=== PATIENT | male | born 1960 | race Caucasian/White ===

== ENCOUNTER 2025-08-30 15:13 | Emergency (ER) | payer BC, SELFPAY ==
[2025-08-30 15:32] VITALS: BP 164/107
--- NOTE | 2025-08-30 15:47 | ED.GENMED ---
History of Present Illness
General
Chief Complaint: Crisis Evaluation
Source: patient and family (Siblings)
Exam Limitations: none
Time Seen by Provider: 08/30/25 15:37
History of Present Illness
History of Present Illness:
65-year-old male presents with depression and suicidal ideation. This is apparently been ongoing for months. Has come to ahead today. He apparently posted online about his thoughts and issues. Stepdaughter confronted him where he admitted to
being severely depressed with suicidal ideation. He lost his job. Has had multiple surgeries. Not sleeping. Very depressed. Has been seen by psychologist over the last month. Denies acute medical complaints but has ongoing neck pain and
headaches that have been a chronic issue.
Past History
Past History
ED Past Medical History: HTN and NIDDM
ED Past Surgical History: Cholecystectomy, Orthopedic and Other ([place] teeth)
Review of Systems
Review of Systems
All Other Systems: Not applicable
Constitutional: Denies fever or chills
Respiratory: Reports no symptoms
Cardiac: Reports no symptoms
Phy Exam
Physical Exam
Physical Exam:
GENERAL: Alert and oriented. Slightly tearful. Slightly poor eye contact
EYE: Orbits normal.
NECK: Supple
CARDIAC: Regular rate and rhythm without any obvious murmurs.
LUNGS: Clear breath sounds,normal
ABDOMEN: Soft, without focal tenderness or distention
NEUROLOGICAL: Alert and oriented , grossly non-focal
SKIN: Warm and dry
PSYCH: Normal and appropriate interaction.
Course
Orders/Labs/Results
Orders:
Orders
08/30/25 15:15
1:1 Observation - Suicide/ Violent Behavior As Directed
08/30/25 15:37
Crisis Consult Urgent
Reason for Consult: depression. suicidal ideation
08/30/25 17:22
Acetaminophen [Tylenol] 1,000 mg PO NOW STA
Ibuprofen [Motrin] 600 mg PO NOW STA
08/30/25 20:10
METFORMIN HCl [Glucophage] 500 mg .ROUTE .STK-MED ONE
METFORMIN HCl [Glucophage] 500 mg PO NOW STA
Vital Signs
Initial and Last Documented VS:
Initial Vital Signs
Temp Pulse Resp BP Pulse Ox
98.7 F 112 18 164/107 96
08/30/25 15:32 08/30/25 15:32 08/30/25 15:32 08/30/25 15:32 08/30/25 15:32
Last Documented Vital Signs
Temp Pulse Resp BP Pulse Ox
98.7 F 93 16 122/85 96
08/30/25 15:32 08/30/25 17:42 08/30/25 17:42 08/30/25 17:42 08/30/25 15:50
MDM/Problems Addressed
Differential Diagnosis Includes:
Depressed. Suicidal ideation. In my opinion warrants hospitalization, hopefully voluntarily. He seems agreeable at this time. Crisis will evaluate. No acute medical issues. Chronic neck pain and headaches. However this has been ongoing and
stable. Neurologic exam is normal.
*Pulse Oximetry
SaO2: 96
Oxygen Mode of Delivery: Room air
Patient hypoxic: no
*Critical Care Note
Total Time (30-74mins, 75-104mins- exclusive of procedures): Not Applicable
ED Attending Note
-
Portions of this chart may have been created with voice recognition software.� Occasional wrong word or��sound alike� substitutions may have occurred due to the inherent limitations of voice recognition software.
Discharge Plan
Departure
Patient Disposition: Psych Facility
Date of Disposition: 08/30/25
Time of Disposition: 18:46
Discharge Problem:
Depression/suicidal ideation
Referrals:
Leticia Hou DO [Family Provider, Family Practice]
Interventions
Interventions:
*Risk Screen - Suicide (C-SSRS) Last Done: 08/30/25 15:14
ED-Psychological Assessment Last Done: 08/30/25 18:00
Discharge Date and Time
Print Language: MALIAN
[2025-08-30] MEDS: TYLENOL 1000 MG PO (17:40)
[2025-08-30] MEDS: MOTRIN 600 MG PO (17:40)
[2025-08-30 17:42] VITALS: BP 122/85
[2025-08-30] MEDS: GLUCOPHAGE 500 MG PO (20:12)
== END 2025-08-30 20:51 ==
LOC: EMR 15:13
PROVIDERS: EMERGENCY PHYSICIAN Emergency Medicine; FAMILY PHYSICIAN Family Medicine
DX: F32.A Depression, unspecified (principal); R45.851 Suicidal ideations; E11.9 Type 2 diabetes mellitus without complications; I10 Essential (primary) hypertension; M54.2 Cervicalgia; G89.29 Other chronic pain; Z56.0 Unemployment, unspecified; Z79.84 Long term (current) use of oral hypoglycemic drugs
CPT/HCPCS: 99285